=== PATIENT | female | born 1960 | race Caucasian/White ===

== ENCOUNTER → 2021-10-15 | Outpatient (CLI) | payer BC | LOC: HEART 5 08:28 | DX: R00.2 Palpitations (principal) ==

== ENCOUNTER 2021-10-27 13:45 | Emergency (ER) | payer BC ==
[2021-10-27 15:56] LABS: HEMOGLOBIN 14.1 gm/dl (12.3-15.3); RED BLOOD COUNT 4.83 M/UL (4.00-5.10)
[2021-10-27 16:21] LABS: BUN/CREATININE RATIO 32 (0-10)
[2021-10-27] MEDS ORDERED: METOPROLOL TART25 MG PO (16:43)
== END 2021-10-27 16:55 | disposition home or self-care (01) ==
LOC: ER1 13:45
PROVIDERS: Physician Assistant
DX: R00.2 Palpitations (principal)
CPT/HCPCS: 71045; 80053; 82550; 82553; 83874; 84484; 85025; 93005; 99285

== ENCOUNTER → 2021-11-13 | Outpatient (CLI) | payer BC ==
[~2021-11-13] MED LIST: METOPROLOL TART25 MG PO
== END ==
LOC: HEART 5 08:14
DX: I49.3 Ventricular premature depolarization (principal); I47.2 Ventricular tachycardia; I34.0 Nonrheumatic mitral (valve) insufficiency
CPT/HCPCS: 78452; 93306; A9502

== ENCOUNTER 2022-07-03 22:31 | Emergency (ER) | payer BC ==
[2022-07-03 23:14] LABS: HEMOGLOBIN 13.1 gm/dl (12.3-15.3); RED BLOOD COUNT 4.37 M/UL (4.00-5.10); WHITE BLOOD COUNT 11.7 K/UL (4.5-11.0)
[2022-07-03 23:39] LABS: BUN/CREATININE RATIO 20 (0-10)
== END 2022-07-04 02:10 | disposition home or self-care (01) ==
LOC: ER1 22:31
PROVIDERS: Family Medicine
DX: R10.10 Upper abdominal pain, unspecified (principal); R74.01 Elevation of levels of liver transaminase levels; Z88.1 Allergy status to other antibiotic agents
CPT/HCPCS: 80053; 81001; 83690; 85025; 99284